=== PATIENT | male | born 1990 | race Caucasian/White ===

== ENCOUNTER 2020-11-27 19:20 | Emergency (ER) | payer BC ==
[2020-11-27] MEDS ORDERED: ACETAMINOPHEN 325 MG TABLET (FP) PO ONE (19:50)
[2020-11-27] MEDS ORDERED: ACETAMINOPHEN 500 MG TABLET (FP) PO ONE (19:50)
[2020-11-27] MEDS ORDERED: IBUPROFEN 600 MG TABLET (FP) PO ONE ×2 (19:51→19:59)
[2020-11-27 19:53] VITALS: BP 117/87; PULSE 99; TEMP 98.2; BMI 36.6
[2020-11-27] MEDS ORDERED: ACETAMINOPHEN 325 MG TABLET (FP) ONE (19:58)
== END 2020-11-27 21:18 | disposition home or self-care (01) ==
LOC: JER 19:20
DX: S82.091A Other fracture of right patella, initial encounter for closed fracture (principal)
CPT/HCPCS: 73562-TC-RT-FY; 73590-TC-RT-FY; 99283-25

== ENCOUNTER 2021-04-12 09:40 | Day surgery (SDC) | payer BC ==
[2021-04-01 12:59] VITALS: BMI 35.4
[2021-04-12] MEDS ORDERED: EPINEPHrine/PF 1 MG/1 ML (1:1,000) AMPULE ONE (10:24)
[2021-04-12] MEDS ORDERED: BUPIVACAINE HCL/PF 0.25% (2.5MG/ML) 10 ML VIAL ONE (10:24)
[2021-04-12] MEDS ORDERED: BUPIVACAINE HCL/PF 0.5% (5MG/ML) 10 ML VIAL ONE (11:09)
[2021-04-12] MEDS ORDERED: MIDAZOLAM HCL 2 MG/2 ML SINGLE DOSE VIAL ONE ×2 (11:09→12:03)
[2021-04-12] MEDS ORDERED: BUPIVACAINE LIPOSOME/PF (EXPAREL) 266 MG/20 ML VIAL ONE (11:09)
[2021-04-12] MEDS ORDERED: SODIUM CHLORIDE 0.9% P/F 10 ML VIAL IJ ONE (11:54)
[2021-04-12] MEDS ORDERED: LIDOCAINE HCL/PF 2% SDV 5ML VIAL ONE (12:02)
[2021-04-12] MEDS ORDERED: fentaNYL CITRATE 250 MCG/5 ML VIAL ONE (12:02)
[2021-04-12] MEDS ORDERED: ONDANSETRON 4 MG/2 ML VIAL ONE ×2 (12:02→16:29)
[2021-04-12] MEDS ORDERED: KETOROLAC TROMETHAMINE 30 MG/1 ML VIAL ONE (12:02)
[2021-04-12] MEDS ORDERED: LIDOCAINE HCL 2% JELLY (5 ML/TUBE) ONE (12:02)
[2021-04-12] MEDS ORDERED: ceFAZolin SODIUM 1 GM VIAL ONE (12:02)
[2021-04-12] MEDS ORDERED: DEXAMETHASONE SOD PHOSPHATE 4 MG/1 ML VIAL ONE (12:02)
[2021-04-12] MEDS ORDERED: PROPOFOL 20 ML ONE ×4 (12:03)
[2021-04-12] MEDS ORDERED: SEVOFLURANE 250 ML BTL ONE (12:39)
[2021-04-12] MEDS ORDERED: DESFLURANE GAS 240 ML BOTTLE IH ONE (12:40)
[2021-04-12] MEDS ORDERED: HYDROmorphone HCL/PF 1 MG/ML VIAL ONE ×2 (13:59)
[2021-04-12] MEDS ORDERED: ONDANSETRON 4 MG/2 ML VIAL IVPUSH PRN (15:07)
[2021-04-12] MEDS ORDERED: oxyCODONE HCL 5 MG TABLET PO PRN ×2 (15:07)
[2021-04-12] MEDS ORDERED: PROMETHAZINE HCL 25 MG/1 ML VIAL IVPUSH PRN (15:07)
[2021-04-12] MEDS ORDERED: oxyCODONE HCL 5 MG TABLET ONE (15:54)
[2021-04-12 17:49] VITALS: TEMP 98.2
[2021-04-12 17:55] VITALS: BP 120/72; PULSE 96
== END 2021-04-12 17:00 | disposition home or self-care (01) ==
LOC: FASU 09:40
PROVIDERS: ATTEND Orthopaedic Surgery Sports Medicine
PROC: 0SBC4ZZ Excision of Right Knee Joint, Percutaneous Endoscopic Approach (ICD-10-PCS; 2021-04-12)
PROC: 0MRN47Z Replacement of Right Knee Bursa and Ligament with Autologous Tissue Substitute, Percutaneous Endoscopic Approach (ICD-10-PCS; principal; 2021-04-12 11:00)
PROC: 0LBQ0ZZ Excision of Right Knee Tendon, Open Approach (ICD-10-PCS; 2021-04-12 11:00)
DX: S83.511A Sprain of anterior cruciate ligament of right knee, initial encounter (principal); S83.281A Other tear of lateral meniscus, current injury, right knee, initial encounter; X58.XXXA Exposure to other specified factors, initial encounter; Y93.9 Activity, unspecified; Y92.9 Unspecified place or not applicable
CPT/HCPCS: 29888; C1713; G0289; 73560-TC-RT-FY; 94760